=== PATIENT | female | born 1995 | race Asian ===

== ENCOUNTER 2020-08-07 01:28 | Emergency (ER) | payer OTHER ==
[~2020-08-07] VITALS: Ht 165.1 cm; Wt 59.0 kg
[2020-08-07 01:32] VITALS: Ht 165.1 cm; Wt 59.0 kg
[2020-08-07 01:46] LABS: PLATELET COUNT 210 x10^3mcL (130-400); RED CELL DISTRIBUTION WIDTH 12.3 % (11.5-14.5)
[2020-08-07 01:57] LABS: MONOCYTE 5 % (0-7); SEGMENTED NEUTROPHILS 90 % (37-75)
[2020-08-07 01:59] LABS: rbc morphology (normal/abnorm) ABNORMAL (NORMAL)
[2020-08-07 02:02] LABS: ALKALINE PHOSPHATASE 58 U/L (46-116); ALT/SGPT 81 U/L (14-59); AST/SGOT 161 U/L (15-37); BAND NEUTROPHIL 0 % (0-10); BILIRUBIN TOTAL 0.65 mg/dL (0.20-1.00); CALCIUM 8.7 mg/dL (8.5-10.1); CARBON DIOXIDE 27.4 mmol/L (21-32); CHLORIDE SERUM 100 mmol/L (98-107); CREATININE SERUM 1.1 mg/dL (0.6-1.0); GFR1 > 60 mL/min; GLUCOSE SERUM 119 mg/dL (74-106); LIPASE 120 IU/L (73-393); POTASSIUM SERUM 3.3 mmol/L (3.5-5.1); SODIUM SERUM 135 mmol/L (136-145); TOTAL PROTEIN, SERUM 7.2 g/dL (6.4-8.2)
[2020-08-07 03:52] VITALS: BP 116/64
== END 2020-08-07 03:52 | disposition home or self-care (01) ==
LOC: ED 01:28
PROVIDERS: Emergency Medicine
DX: R07.89 Other chest pain (principal); R10.13 Epigastric pain
CPT/HCPCS: J1885; J2405; J3490; J7030; Q0092